=== PATIENT | female | born 1970 | race Caucasian/White ===

== ENCOUNTER → 2020-11-27 | Outpatient (CLI) | payer OTHER ==
[~2020-11-27] MED LIST: ALEVE220 M1 PO; COZAAR50 MG PO; FLUTICASONE-SA1 EAC3; FOLIC ACID 1 MG1 MG PO; IBUPROFEN800 MG PO; KEFLEX CAP 500500 MG PO; NEURONTIN 300300 MG PO; NORCO 10-325 T1 EACH PO; ULTRAM50 MG PO; VITAMIN C 500500 MG PO; ZANTAC150 MG PO; ZOCOR20 MG PO; ZOFRAN4 MG PO; ZYRTEC10 M3 PO
[2020-11-27 14:12] LABS: HEMOGLOBIN 13.9 gm/dl (12.3-15.3); RED BLOOD COUNT 6.52 M/UL (4.00-5.10); WHITE BLOOD COUNT 9.7 K/UL (4.5-11.0)
[2020-11-27 14:34] LABS: BUN/CREATININE RATIO 19 (0-10)
[2020-11-28 09:15] LABS: CREATININE, URINE 113.8 mg/dL (Not Estab.)
== END ==
LOC: LAB 12:18
PROVIDERS: Internal Medicine Nephrology; Physician Assistant
DX: M10.9 Gout, unspecified (principal); R80.9 Proteinuria, unspecified; E78.5 Hyperlipidemia, unspecified; E55.9 Vitamin D deficiency, unspecified
CPT/HCPCS: 36415; 80053; 80061; 81001; 82043; 82550; 82570; 84156; 84550; 85025

== ENCOUNTER → 2021-05-07 | Outpatient (CLI) | payer OTHER ==
[2021-05-08 11:14] LABS: CREATININE, URINE 84.8 mg/dL (Not Estab.)
== END ==
LOC: LAB 09:19
PROVIDERS: Internal Medicine Nephrology
DX: M10.9 Gout, unspecified (principal); Q60.0 Renal agenesis, unilateral
CPT/HCPCS: 36415; 80053; 81001; 82043; 82570; 84156; 84550; 87086

== ENCOUNTER → 2021-06-18 | Outpatient (CLI) | payer OTHER | LOC: KOH-I 08:10 | DX: K76.0 Fatty (change of) liver, not elsewhere classified (principal); Z90.49 Acquired absence of other specified parts of digestive tract | CPT/HCPCS: 76705 ==

== ENCOUNTER → 2022-01-14 | Outpatient (CLI) | payer OTHER | LOC: KOH-I 08:00 | DX: K76.0 Fatty (change of) liver, not elsewhere classified (principal); M79.89 Other specified soft tissue disorders; Z90.49 Acquired absence of other specified parts of digestive tract; Z90.5 Acquired absence of kidney | CPT/HCPCS: 76705 ==

== ENCOUNTER → 2022-01-22 | Outpatient (CLI) | payer OTHER | LOC: EXRD 12-30 10:00 | DX: M79.89 Other specified soft tissue disorders (principal); K76.0 Fatty (change of) liver, not elsewhere classified | CPT/HCPCS: 93970; 93971 ==

== ENCOUNTER 2022-04-16 12:49 | Emergency (ER) | payer OTHER ==
[2022-04-16 14:29] LABS: HEMOGLOBIN 13.7 gm/dl (12.3-15.3); RED BLOOD COUNT 6.67 M/UL (4.00-5.10); WHITE BLOOD COUNT 11.5 K/UL (4.5-11.0)
[2022-04-16 18:23] LABS: BUN/CREATININE RATIO 19 (0-10)
== END 2022-04-16 16:18 | disposition home or self-care (01) ==
LOC: ER1 12:49
PROVIDERS: Physician Assistant
DX: M10.9 Gout, unspecified (principal); E11.9 Type 2 diabetes mellitus without complications; F17.200 Nicotine dependence, unspecified, uncomplicated; Z90.5 Acquired absence of kidney; Z90.710 Acquired absence of both cervix and uterus; Z90.49 Acquired absence of other specified parts of digestive tract; Z88.8 Allergy status to other drugs, medicaments and biological substances
CPT/HCPCS: 73630; 80053; 84550; 85025; 99283